=== PATIENT | female | born 1945 | race Caucasian/White ===

== ENCOUNTER → 2024-06-07 14:50 | Outpatient (REF) | payer MEDICARE, SELFPAY | LOC: HWRAD 14:50 | PROVIDERS: ATTENDING PHYSICIAN Physician Assistant Medical | DX: R63.4 Abnormal weight loss (principal); K52.9 Noninfective gastroenteritis and colitis, unspecified; R13.10 Dysphagia, unspecified; R59.9 Enlarged lymph nodes, unspecified; R22.1 Localized swelling, mass and lump, neck | CPT/HCPCS: 76536 ==

== ENCOUNTER → 2024-06-24 09:42 | Outpatient (REF) | payer MEDICARE, SELFPAY | LOC: RST 09:42 | PROVIDERS: ATTENDING PHYSICIAN Internal Medicine; FAMILY PHYSICIAN Physician Assistant Medical | DX: R13.10 Dysphagia, unspecified (principal) | CPT/HCPCS: 74230; 92611 ==

== ENCOUNTER → 2024-07-05 09:06 | Outpatient (REF) | payer MEDICARE, SELFPAY | LOC: RAD 09:06 | PROVIDERS: ATTENDING PHYSICIAN Internal Medicine; FAMILY PHYSICIAN Physician Assistant Medical | DX: R13.10 Dysphagia, unspecified (principal) | CPT/HCPCS: 74246 ==

== ENCOUNTER 2024-09-05 06:39 | Day surgery (SDC) | payer MEDICARE, SELFPAY | END 2024-09-05 13:21 | disposition home or self-care (01) | LOC: GI 06:39 | PROVIDERS: ATTENDING PHYSICIAN Internal Medicine | DX: Z12.11 Encounter for screening for malignant neoplasm of colon (principal); K57.30 Diverticulosis of large intestine without perforation or abscess without bleeding; K64.4 Residual hemorrhoidal skin tags; K64.8 Other hemorrhoids; K58.9 Irritable bowel syndrome, unspecified; R10.13 Epigastric pain; K44.9 Diaphragmatic hernia without obstruction or gangrene; K22.89 Other specified disease of esophagus; R93.3 Abnormal findings on diagnostic imaging of other parts of digestive tract; K31.89 Other diseases of stomach and duodenum; K22.4 Dyskinesia of esophagus; D12.2 Benign neoplasm of ascending colon; D12.3 Benign neoplasm of transverse colon; K63.5 Polyp of colon; Z98.0 Intestinal bypass and anastomosis status; Z86.0101 Personal history of adenomatous and serrated colon polyps | CPT/HCPCS: 45385; 45380; 43239; 88305; 88342 ==

== ENCOUNTER 2024-10-26 22:37 | Inpatient (IN) | payer MEDICARE, SELFPAY ==
--- NOTE | 2024-10-26 19:05 | EDRN ---
Addendum entered by Meeta Cruz RN 10/26/24 22:08:
Call placed to nila kaminski at [facility] also caring for the patient. family never arrived to hospital after patient's arrival or called to check on patient.
Original Note:
Patient arrived from home via EMS after being found on the ground by her daughter today at approximately 1830. Per EMS they 'peeled' the patient off of the carpet. Patient assumed to be down after a fall since , as that is when her daughter
left on her trip. Patient states that her daughters [id number], who was taking care of the patients grandchildren, was supposed to be checking in on her. Patient states she could hear them in the home as she lives in the in-law suite at her
daughters house. Patient reports that she remembers the fall and what she was doing before the fall but does not know exactly what day this fall happened. Patient arrives with pressure wounds to her face of multiple stages and to her chest. Patient
is unable to open right eye, appears extremely dehydrated, and is saturated head to toe in urine. Patient states that on a normal day, there are people checking on her, but she was not checked on for the time she spent on the floor.
[2024-10-26 19:07] VITALS: BP 123/71
[2024-10-26 19:10] VITALS: BP 123/71
[2024-10-26 19:29] LABS: Hematocrit 45.8 % (37.0-47.0); Hemoglobin 14.9 g/dL (12.0-16.0); Mean Corp Hgb Conc. 32.5 g/dL (33.0-37.0); Mean Corpuscular Volume 95.8 fL (81.0-99.0); Nucleated Red Blood Cells % 0 %; Platelet Count 268 10^3/uL (130-400); Red Cell Dist. Width 12.9 % (11.5-14.5)
[2024-10-26 19:55] LABS: ALT (SGPT) 174 U/L (0-35); AST (SGOT) 675 U/L (14-36); Albumin 4.7 g/dl (3.5-5.0); Alkaline Phosphatase 56 U/L (38-126); Blood Urea Nitrogen 85 mg/dl (7-17); Calcium 10.2 mg/dl (8.4-10.2); Carbon Dioxide 24 mmol/L (22-30); Chloride 109 mmol/L (98-107); Glucose 134 mg/dl (70-99); Potassium 5.1 mmol/L (3.5-5.1); Sodium 144 mmol/L (135-145); Total Protein 8.1 g/dl (6.3-8.2); eGFR 18.21
[2024-10-26 20:00] VITALS: BP 109/72
--- NOTE | 2024-10-26 20:08 | ED.GENMED ---
History of Present Illness
General
Chief Complaint: Fall
Source: patient and ambulance crew
Exam Limitations: none
Time Seen by Provider: 10/26/24 19:30
Nursing documentation reviewed up to this point in time: agreed with
History of Present Illness
History of Present Illness:
Note:
CHIEF COMPLAINT(S)
Generalized pain and dehydration following a fall.
HISTORY OF PRESENT ILLNESS
The patient is a 79-year-old female who was found by her daughter after having fallen, possibly several days ago. The exact timing of the fall is unclear, but it was significant enough that the patients daughter was concerned upon finding her. The
patient reports pain 'all over' and mentions feeling dehydrated, expressing extreme thirst and craving for a milkshake. The patients walker was found over her head, indicating a possible fall. Additionally, she discussed a history of bipolar
disorder for which she had been previously on lithium, leading to adverse reactions including tremors.
SOCIAL HISTORY
The patient has a history of service, having worked in the [employer], and has shared about her daughters professional achievements in research and development.
REVIEW OF SYSTEMS
- Musculoskeletal: Generalized pain.
- Neurological: Reports history of tremors associated with past lithium use.
- Psychiatric: History of bipolar disorder.
PHYSICAL EXAM
General: Alert, no acute distress.
Skin: Warm, dry. pressure ulcer right side of face
Head: Normocephalic, atraumatic.
Neck: Supple, trachea midline.
Eye, Ears, Nose, Mouth, and Throat: Oral mucosa moist.
Cardiovascular: Normal peripheral perfusion, No edema.
Respiratory: Respirations are non-labored.
Gastrointestinal: Abdomen nondistended.
Back: Normal range of motion, Normal alignment.
Musculoskeletal: Normal range of motion, normal strength.
Neurological: Alert and oriented to person, place, time, and situation, No focal neurological deficit observed.
Psychiatric: Cooperative, appropriate mood & affect.
PLAN
- Administer intravenous fluids to address dehydration.
- Perform imaging studies to assess for potential injuries from the fall, including a computed tomography scan of the head, evaluation of the neck, and additional x-rays.
- Admit to the hospital for observation and further evaluation overnight.
DIFFERENTIAL DIAGNOSIS
The differential diagnosis includes, in no particular order and is not limited to:
1. Dehydration
2. Musculoskeletal injury from fall
3. Electrolyte imbalance
4. Neurological injury from fall
5. Delirium due to potential underlying infection or metabolic causes
6. Osteoporosis-related fracture
7. Syncope or postural hypotension leading to fall
8. Acute renal failure secondary to dehydration
9. Recurrence of psychiatric condition
10. Adverse reaction to previous medications (e.g., lithium)
CARE-UPDATE
10/26/24 - 22:17
Patient has rhabdomyolysis leading to acute renal failure and a pressure ulcer on the right side of the face from a fall. No signs of cranial hemorrhage, cervical spine fracture, pneumothorax, rib fracture, or pelvic/hip fracture. IV fluids are
being administered. The patient is admitted under the care of a hospitalist. A report concerning the patient being left unattended for three days has been filed by nursing staff.
EKG
My independent EKG interpretation is:
- EKG poor quality due to tremor.
- Heart rate: 104 bpm.
- Decker: Normal.
- No signs of ischemia observed.
- Poor quality limits interpretation.
Disposition:
SUMMARY OF ENCOUNTER
The patient, a 79-year-old female, was brought to the emergency department after being discovered by her daughter following a fall that likely occurred several days prior. Upon evaluation, the patient was dehydrated and expressed generalized pain.
Imaging was performed to assess for injuries related to the fall. Intravenous fluids were administered due to dehydration, and she was admitted for further observation and management.
DISPOSITION
Admit.
ASSESSMENT
The patient is assessed to have acute renal failure due to rhabdomyolysis, which was exacerbated by the fall and a potential period of neglect. Additionally, a pressure ulcer on the right side of the face was noted likely due to prolonged immobility
following the fall.
PLAN
The patient is to be admitted under the care of a hospitalist for management of acute renal failure secondary to rhabdomyolysis and a pressure ulcer. Intravenous fluid administration will continue to address dehydration and potential renal recovery.
Monitoring and treatment for any possible complications such as infection or further renal injury will be ongoing. Evaluate for social support and ensure proper care and supervision post-discharge to prevent recurrence of neglect-related issues.
INDEPENDENT REVIEW OF LABS AND INTERPRETATION OF TESTS
- My independent review of EKG is that the quality was poor due to tremor, heart rate was 104 bpm, axis was normal, and no signs of ischemia were observed.
MEDICAL DECISION MAKING
-Complexity of Data Reviewed: Chronic conditions affecting care [bipolar disorder, previous adverse reaction to lithium, history of tremor]. Differential diagnosis includes dehydration, musculoskeletal injury from fall, electrolyte imbalance,
neurological injury from fall, delirium due to potential underlying infection or metabolic causes, osteoporosis-related fracture, syncope or postural hypotension leading to fall, acute renal failure secondary to dehydration, recurrence of
psychiatric condition, and adverse reaction to previous medications.
-Data:
- Category 1:
- My independent interpretation of EKG: Poor quality due to tremor, heart rate 104 bpm, normal axis, no ischemia.
- Category 3:
- Discussion of management with hospitalist for admission and further treatment of acute renal failure and pressure ulcer.
-Risk:
- Consideration of Admission/Observation: Escalation of care including admission was implemented given the complexity and risk of the patients presenting symptoms and current medical status, ensuring appropriate supervision and intervention in a
hospital setting.
DIAGNOSIS
- Acute renal failure (ICD-10: N17.9)
- Rhabdomyolysis (ICD-10: M62.82)
- Pressure ulcer of right side of face (ICD-10: L89.210)
- Fall, unspecified (ICD-10: W19.XXXA)
- Neglect (ICD-10: T74.90XA)
Phy Exam
Physical Exam
Physical Exam:
.
Course
Orders/Labs/Results
Orders:
Orders
10/26/24 19:12
Urinalysis Reflex To Culture Urgent
Date Specimen was Collected: 10/26/24
Time Specimen was Collected: 19:12
10/26/24 19:21
CPK [Creatine Phosphokinase] Urgent
Complete Blood Count/With Diff Urgent
Comprehensive Metabolic Panel Urgent
Lactic Acid Urgent
Blood Culture Urgent
ROSE Source: Blood/Venous
Specimen Description:
Date Specimen was Collected: 10/26/24
Time Specimen was Collected: 19:12
10/26/24 19:22
Electrocardiogram (*1) Urgent
Reason for Study: Hypertension, Benign
EKG- Treatment ONCE
10/26/24 20:04
CT Cervical Spine W/o Iv Contr Urgent
Comment:
Reason For Exam: fall
CT Head W/o Iv Contrast Urgent
Comment:
Reason For Exam: fall
CR Chest - 2 Views Urgent
Comment:
Reason For Exam: fall onto right side
Pelvis, 1 or 2 Views CR [CR Pelvis - 1 Or 2 Views ] Urgent
Comment:
Reason For Exam: fall
10/26/24 20:05
0.9% Sodium Chloride 1000 ml [Nss] 1,000 ml IV BOLUS
Abnormal Lab Results
10/26/24
19:21
WBC 18.2 H 10^3/uL
(4.8-10.8)
MCH 31.2 H pg
(27.0-31.0)
MCHC 32.5 L g/dL
(33.0-37.0)
MPV 10.8 H fL
(7.4-10.4)
Abs Immat Gran (auto) 0.1 H 10^3/uL
(0-0.05)
Absolute Neuts (auto) 15.9 H 10^3/uL
(1.4-6.5)
Absolute Lymphs (auto) 0.8 L 10^3/uL
(1.2-3.4)
Absolute Monos (auto) 1.4 H 10^3/uL
(0.1-0.6)
Neutrophils % 87.3 H %
(42.2-75.2)
Lymphocytes % 4.1 L %
(20.5-51.1)
Chloride 109 H mmol/L
(98-107)
BUN 85 H mg/dl
(7-17)
Creatinine 2.6 H mg/dL
(0.6-1.0)
Glucose 134 H mg/dl
(70-99)
Lactic Acid 2.3 H mmol/L
(0.7-2.0)
AST 675 H* U/L
(14-36)
ALT 174 H U/L
(0-35)
Creatine Kinase 03582 H U/L
(30-135)
10/26/24 19:21
10/26/24 19:21
Vital Signs
Initial and Last Documented VS:
Initial Vital Signs
Temp Pulse Resp BP Pulse Ox
98.2 F 104 16 123/71 96
10/26/24 19:07 10/26/24 19:07 10/26/24 19:07 10/26/24 19:07 10/26/24 19:07
Last Documented Vital Signs
Temp Pulse Resp BP Pulse Ox
98.2 F 93 18 123/71 96
10/26/24 19:07 10/26/24 19:45 10/26/24 19:45 10/26/24 19:10 10/26/24 20:08
*Pulse Oximetry
SaO2: 96
Oxygen Mode of Delivery: Room air
Patient hypoxic: no
*Critical Care Note
Total Time (30-74mins, 75-104mins- exclusive of procedures): Not Applicable
ED Attending Note
-
Portions of this chart may have been created with voice recognition software.� Occasional wrong word or��sound alike� substitutions may have occurred due to the inherent limitations of voice recognition software.
Discharge Plan
Departure
Patient Disposition: Admit
Date of Disposition: 10/26/24
Time of Disposition: 22:01
Admit to: Telemetry
Presentation/result/management discussed w/ accepting MD/DO: Hospitalist
Patient with high blood pressure during this ER visit?: Yes
Condition: Fair
Discharge Problem:
Acute renal failure due to rhabdomyolysis, Fall, Pressure ulcer
Referrals:
Marifer Devine PA-C [Family Provider, Family Practice]
Interventions
Interventions:
*Risk Screen - Suicide Last Done: 10/26/24 19:29
*General Assessment Last Done: 10/26/24 19:22
*Neglect/Abuse Screening Last Done: 10/26/24 21:43
*ED- Fall Risk Assessment Last Done: 10/26/24 19:22
*ED COVID-19 Vaccine History Last Done: 10/26/24 19:22
ED-Musculoskeletal Assessment Last Done: 10/26/24 19:42
ED- Neurological Assessment Last Done: 10/26/24 19:30
ED-Skin Assessment Last Done: 10/26/24 19:42
Discharge Date and Time
Print Language: KOSOVAN
[2024-10-26] MEDS: NSS 1000 IV (20:11)
[2024-10-26 21:00] VITALS: BP 108/70
[2024-10-26 22:11] VITALS: BP 116/72
[2024-10-26 22:21] VITALS: BMI 22.0
--- NOTE | 2024-10-26 22:29 | HPS.HSE ---
Family Physician
-
Family Physician: Marifer Devine
Chief Complaint
-
Found Down
History of Present Illness
Patient is a 79y F with PMH significant for bipolar disorder and tremor / tardive dyskinesia who presents to ED after being found down at home today by family. Patient states that she fell '[birth year] my [birth year]' which was [birth year]. She was last seen by
family (with whom she lives) on when they left to take patient's grandchild to college. Family returned home today to find patient down on the floor in the kitchen. Patient found to be incontinent of stool / urine. She had redness /
pressure wound on the R side of her face and was unable to get up unassisted.
911 was called and patient was taken to the ED for further evaluation.
Patient is unable to provide details of the fall. When asked, she repeatedly discusses how she was found by her daughter - but not how she ended up on the floor in the first place.
Patient currently complains of pain 'all over'.
She states that she takes no medications at present. Reports that she used to be on lithium but this was stopped by her Psychiatrist several weeks ago.
(She also indicates that she may have actually been discharged from that practice for repeated missed appointments?).
Medical History
Past Medical History
Past Medical History: Reports Other
Additional Past Medical History:
Bipolar Disorder
Tardive Dyskinesia / Essential Tremor
GERD
Endometriosis
Diverticular Disease
DDD
Past Surgical History: Reports Other
Additional Past Surgical History:
RENAE / BSO
Cholecystectomy
TKA
Lumbar Laminectomy
Partial Colectomy / Colostomy / Reversal
Social History
Tobacco: Non-smoker
Alcohol: Occasional
Drug: None
Living: With Family
Family History
Family History: Not pertinent
Allergies / Home Medications
Allergies reflects when Allergies were last updated in [employer].
Home Medications with original date entered in [facility]
Allergy/Medication List:
Patient reports no current medications. ? accurate.
If medication reconciliation has not been performed, why?: Medication List N/A
Review of Systems
-
History Source: Patient
A 12 point ROS was completed and negative except as noted: Yes
Constitutional: Reports Fatigue; Denies Fever
EENT: Reports Other (Dry mouth)
Respiratory: Denies Cough or Trouble Breathing
Cardiac: Denies Chest Pain or Palpitations
Abdomen/GI: Denies Abdominal Pain, Nausea, Vomiting or Diarrhea
Musculoskeletal: Reports Joint Pain and Muscle Pain
Neurological: Reports Headache and Other (Tremor (chronic)); Denies Dizzy
Physical Exam
Vital Signs
Vital Signs
Temp Pulse Resp BP Pulse Ox
98.2 F 105 13 116/72 99
10/26/24 19:07 10/26/24 22:15 10/26/24 22:15 10/26/24 22:11 10/26/24 22:11
Physical Exam
General: Other (79y F in mild distress due to pain.)
HEENT: Other (Edema of the R face including lips / eyelids. Ecchymotic / early necrotic lesion over the R maxilla. Mild surrounding erythema / superfical abrasion and excoriation.)
Respiratory: Clear; No Wheezes, Rales or Rhonchi
Cardiac: S1/S2 and Regular Rhythm; No Murmur
GI: Soft, Non Tender, Non Distended and Normal Bowel Sounds
Musculoskeletal: No Clubbing, No Cyanosis and Other (Trace dependent edema.)
Skin: Other (Erythema posterior thighs / buttocks with superficial excoriation.)
Neuro: Awake and Alert
Laboratory Results
-
10/26/24 19:21
10/26/24 19:21
Laboratory Results
Lactic Acid 2.3 mmol/L (0.7-2.0) H 10/26/24 19:21
Total Bilirubin 0.7 mg/dl (0.2-1.3) 10/26/24 19:21
AST 675 U/L (14-36) H* 10/26/24 19:21
ALT 174 U/L (0-35) H 10/26/24 19:21
Alkaline Phosphatase 56 U/L (38-126) 10/26/24 19:21
Impression/Plan
-
A/P: Patient is a 79y F with PMH significant for bipolar disorder and tremor who presents to ED after being found down at home by family this evening.
Found Down
Rhabdomyolysis
JOHN
Pressure Wounds / Skin Breakdown
- Admit for further evaluation and treatment.
- Unclear timing of fall - patient states fall was yesterday; however, exam / appearance seems c/w longer period 'down'.
- Last seen well on .
- SCr = 2.6 with no prior value to compare. Outpatient record includes diagnosis of 'CKD III', but suspect JOHN given rhabdo, etc.
- IVFs with bicarbonate for now. Follow for adequate urine output, improvement of renal function and decrease in CPK levels.
- Nephrology evaluation for additional recommendations.
- Check lithium level (though patient notes that she has been off of this for at least several weeks).
- Wound care for local care of pressure wounds.
Fall at Home
- Unclear mechanism of fall, +/- LOC, etc.
- Monitor on telemetry for any evidence of arrhythmia.
- PT / OT evaluations.
- Imaging studies in the ED do not indicate any acute bony trauma, fracture, etc.
Leukocytosis
- Likely secondary to volume contraction, stress response, etc.
- Afebrile and no focal symptoms to suggest infection.
- Follow-up UA when available.
- Observe off of abx for now.
Bipolar Disorder
Benign Essential Tremor
- Patient reports that she was on lithium for some time - but it was 'stopped' several weeks ago.
- She also states that her Psychiatrist told her 'not to come back' because she had missed multiple appointments.
- Check lithium level as noted above.
- Monitor for any acute mood changes, delirium, etc.
DVT Prophylaxis: SCDs
Code Status: Full
[2024-10-26 23:43] VITALS: BMI 21.3
[2024-10-26 23:45] LABS: Lithium < 0.2 mmol/L (0.6-1.2)
[2024-10-26 23:46] VITALS: BP 104/68
[2024-10-27] VITALS (14 sets, daily range): BP systolic 98–118; BP diastolic 61–102; PULSE 82–115; O2SAT 96–97; BMI 21.3
[2024-10-27] MEDS: SODIUM BICARBONATE 1150 MEQ IV ×2 (01:25→08:34)
[2024-10-27] MEDS: NSS 1000 IV (01:26)
[2024-10-27] MEDS: TYLENOL 650 MG PO ×2 (02:25→22:02)
--- NOTE | 2024-10-27 03:51 | PTCARENOTE ---
received pt from ED at 23:20. pt aaox3, able to make needs known. C/o pain 'all over'. PO tylenol given. Clear liquid diet. 5 small cups of apple juice given per patient request(1200ml) followed by two large cups of water (960ml). IVF hung. Pt with
large liquid BM. Bed linens changed, CHG bath done. Pt resting comfortably in bed at this time. VSS. Care ongoing.
[2024-10-27 06:30] LABS: Hematocrit 37.6 % (37.0-47.0); Hemoglobin 12.8 g/dL (12.0-16.0); Mean Corp Hgb Conc. 34.0 g/dL (33.0-37.0); Mean Corpuscular Volume 94.9 fL (81.0-99.0); Platelet Count 199 10^3/uL (130-400); Red Cell Dist. Width 13.0 % (11.5-14.5)
[2024-10-27 06:46] LABS: ALT (SGPT) 138 U/L (0-35); AST (SGOT) 442 U/L (14-36); Albumin 3.6 g/dl (3.5-5.0); Alkaline Phosphatase 46 U/L (38-126); Blood Urea Nitrogen 87 mg/dl (7-17); Calcium 8.9 mg/dl (8.4-10.2); Carbon Dioxide 21 mmol/L (22-30); Chloride 111 mmol/L (98-107); Estimated Creatinine Clearance 20 ml/min; Glucose 137 mg/dl (70-99); Magnesium 2.6 mg/dl (1.6-2.3); Potassium 4.3 mmol/L (3.5-5.1); Sodium 141 mmol/L (135-145); Total Protein 6.4 g/dl (6.3-8.2); eGFR 23.53
--- NOTE | 2024-10-27 07:19 | W.PN.HOSP.TC ---
Today's Communication/Plan
-
Continue IV fluids
Urinalysis
Tegretol level
Advance diet
PT/OT
Please update home medication list
Assessment / Plan
Assessment / Plan
Gen-awake but not fully alert, no acute distress.
HEENT-NC, AT, anicteric, clear oral mm
Neck-supple
CV-reg, no M, +S1/S2
Lungs-clear B/L
Abd-soft, NT, ND
Ext-no edema
Musculoskeletal-no cyanosis, clubbing
Skin-warm and dry
Neuro-grossly non-focal, bilateral arm tremors
Psych-calm, cooperative
JOHN -likely due to volume depletion, poor oral intake, limited access to fluids prior to admission. Continue hydration. Creatinine coming down. Check urinalysis. Nephrology consulted.
Acute traumatic rhabdomyolysis -due to fall, stationary position with limited mobility. Continue alkalinize IV fluids, CPK trending down. Check urinalysis.
TSH is normal.
Bipolar disorder -previously on lithium but no longer taking. Will need to update home medication list. It appears that recently she has been on escitalopram, nortriptyline, Tegretol.
Check Tegretol level.
Tardive dyskinesia/nonessential tremor -I saw a note dated 09/05/2024 (H&P from Dr. Pinto) mentioning possible lithium related tardive dyskinesia. Although lithium is a very unlikely cause of tardive dyskinesia there have been rare cases of it on
my literature review.
Chronic multifactorial dysphagia - been seen by Dr. Pinto of gastroenterology. Last note dated 09/05/2024. Underwent video swallowing study by speech therapy 06/24/2024, showing cervical osteophytes causing impingement of the posterior esophagus
without obstruction. Evidence of likely esophageal motility disorder, small hiatal hernia without reflux. Diet recommendation was regular diet with thin liquids.
EGD completed 09/05/24 showed abnormal esophageal motility, small hiatal hernia, nodular esophageal mucosa, atrophic erythematous and granular mucosa in the stomach, normal duodenum. Path report from biopsies was negative for H. pylori or intestinal
metaplasia.
Colonoscopy completed 09/05/24 showed fair preparation, perianal skin tags, normal ileum, 2 cecal polyps, 4 ascending colon polyps, 2 hepatic flexure polyps, 3 transverse colon polyps, diverticulosis in the descending colon, patent [id number]
colocolonic anastomosis with healthy-appearing mucosa, mild colonic spasm, stool in the entire examined colon, nonbleeding internal hemorrhoids. Path report showed polyps are consistent with hyperplastic polyps and tubular adenoma in the ascending
colon, tubular adenoma Paddock flexure, tubular adenomas at the transverse colon, unremarkable left colon biopsy, unremarkable random right colon biopsy.
Currently on clear liquid diet, advance as tolerated to regular diet.
Urinary incontinence
Hyperlipidemia
Mild cognitive impairment
GERD
Endometriosis
Diverticulosis
Colon polyps -adenomatous and serrated.
History of ostomy due to diverticulitis, reversed
Full code
Anticipated Discharge: > 48 hours
Subjective/Interval History
-
Date of Service: October 27, 2024
Patient seen and examined. Complaining of thirst.
Objective Data
-
Labs:
Laboratory Results
10/26/24 10/27/24
19:21 06:07
WBC 18.2 H 15.0 H
Hgb 14.9 12.8
Hct 45.8 37.6
Plt Count 268 199 D
Sodium 144 141
Potassium 5.1 4.3
Chloride 109 H 111 H
Carbon Dioxide 24 21 L
BUN 85 H 87 H
Creatinine 2.6 H 2.1 H
Glucose 134 H 137 H
Calcium 10.2 8.9
Total Bilirubin 0.7 0.6
AST 675 H* 442 H
ALT 174 H 138 H
Alkaline Phosphatase 56 46
Vital Signs:
Vital Signs
Temp Pulse Resp BP Pulse Ox
99.1 F 85 18 104/62 97
10/26/24 23:43 10/27/24 04:00 10/27/24 04:00 10/27/24 04:00 10/27/24 04:00
I&O
10/26/24 10/27/24 10/28/24
06:59 06:59 06:59
Intake Total 3160 / 3160
Balance 3160 / 3160
Review of Systems
-
History Source: Patient
All other systems: Reviewed and negative
--- NOTE | 2024-10-27 10:58 | PTCARENOTE ---
pt to ultrasound w/ transport via stretcher. Pt updated on plan of care.
--- NOTE | 2024-10-27 11:27 | W.CON.NEPH ---
Consultation
-
Date/Time Consultation Requested: 10/27/23 3664
Date/Time Consultation Performed: 10/27/24 1130
Requesting Provider: Chi Shrestha
Performing Provider: Jo Ann Avery
Reason for Consultation: JOHN, RHabdo
Medical History
-
Chief Complaint: Found down
History of Present Illness:
79y F with PMH significant for bipolar disorder and tremor / tardive dyskinesia not on meds who presents to ED after being found down at home on 10/26 by family. Patient states that she fell on floor while reaching food in the fridge 'on my
birthday' which was 10/25, she uses walker for ambulation?. She reports unable to get up from her fall and remained on floor till family(whom she lives with) was able to help her next day 10/26. She was last seen by family on when they left to
take patient's grandchild to college. Family returned home yesterday to find patient down on the floor in the kitchen. Patient found to be incontinent of stool / urine. She had redness / pressure wound on the R side of her face and was unable to
get up unassisted. 911 was called and patient was taken to the ED for further evaluation.
Pt is forgetful and unable to provide detailed history. Reports no CP or sob or abd pain. Reports diarrhea and U incontinence.
No fever here and BP stable. cr noted 2.6, BUN 85 CK of 15k on admit and today with IVF cr down to 2.1, BUN 87, CK 10k.
Past Medical History
Bipolar Disorder
Tardive Dyskinesia / Essential Tremor
GERD
Endometriosis
Diverticular Disease
DDD
Past Surgical History: Other (RENAE / BSO Cholecystectomy TKA Lumbar Laminectomy Partial Colectomy / Colostomy / Reversal)
Social History
Tobacco: Non-Smoker
Alcohol: Occasional
Living: With Family
Family History
Family History: Unable to Obtain
Allergies / Home Medications
Allergy/AdvReac Type Severity Reaction Status Date / Time
No Known Allergies Allergy Verified 10/26/24 19:49
�Medication �Instructions �Recorded �Confirmed �Type
Unobtainable 10/26/24 10/26/24 History
Review of Systems
-
Unable to obtain full review of systems at this time due to: Acuity
All other systems: Negative unless noted
Physical Exam
Vital Signs
Vital Signs
Temp Pulse Resp BP Pulse Ox
98.2 F 83 17 108/64 97
10/27/24 07:16 10/27/24 10:00 10/27/24 10:00 10/27/24 10:00 10/27/24 10:00
Lab Results
WBC 15.0 10^3/uL (4.8-10.8) H 10/27/24 06:07
RBC 3.96 10^6/uL (4.20-5.40) L 10/27/24 06:07
Hgb 12.8 g/dL (12.0-16.0) 10/27/24 06:07
Hct 37.6 % (37.0-47.0) 10/27/24 06:07
Plt Count 199 10^3/uL (130-400) D 10/27/24 06:07
Sodium 141 mmol/L (135-145) 10/27/24 06:07
Potassium 4.3 mmol/L (3.5-5.1) 10/27/24 06:07
Chloride 111 mmol/L (98-107) H 10/27/24 06:07
Carbon Dioxide 21 mmol/L (22-30) L 10/27/24 06:07
BUN 87 mg/dl (7-17) H 10/27/24 06:07
Creatinine 2.1 mg/dL (0.6-1.0) H 10/27/24 06:07
eGFR 23.53 10/27/24 06:07
Glucose 137 mg/dl (70-99) H 10/27/24 06:07
Calcium 8.9 mg/dl (8.4-10.2) 10/27/24 06:07
Phosphorus 4.7 mg/dl (2.5-4.5) H 10/27/24 06:07
Albumin 3.6 g/dl (3.5-5.0) 10/27/24 06:07
Physical Exam
General: Awake, Alert, Oriented, No Distress and Nontoxic
HEENT: EOMI, Anicteric, Facial Symmetry and Neck Supple
Respiratory: Clear, Normal Excursion and Nonlabored Respirations
Cardiac: S1/S2 and Regular Rate/Rhythm
Abdomen: Soft, Nontender and Nondistended
Musculoskeletal: No Cyanosis and No Edema
Skin: Other (pressure wound on right face)
Neuro: Nonfocal/Grossly Intact
Psych: Appropriate
Data Reviewed
-
Labs: Labs Reviewed by me, Discussed with Nurse and Discussed with Patient
Assessment/Plan
-
IMP:
Found Down
Rhabdomyolysis
JOHN
Pressure Wounds / Skin Breakdown
Fall at Home
Leukocytosis
Bipolar Disorder
Benign Essential Tremor
Plan:
A/w found down at home
JOHN-likely prerenal base don history
check UA, Fena, monitor UOP-has incontinence
also check renal US
Rhabdo is improving -cont aggressive IVF
mild met acidosis on bicarb IVF
repeat labs later today and adjust IVF accordingly
BP are stable
cont supportive care
d/w nursing and pt
[2024-10-27 19:09] LABS: Blood Urea Nitrogen 81 mg/dl (7-17); Calcium 8.7 mg/dl (8.4-10.2); Carbon Dioxide 28 mmol/L (22-30); Chloride 103 mmol/L (98-107); Estimated Creatinine Clearance 27 ml/min; Glucose 139 mg/dl (70-99); Potassium 4.2 mmol/L (3.5-5.1); Sodium 136 mmol/L (135-145); eGFR 32.60
[2024-10-27] MEDS: SENOKOT 17.2 MG PO (22:03)
[2024-10-27 22:27] LABS: Urine Character Clear (Clear)
[2024-10-27 22:33] LABS: Urine White Cell 0-2 /HPF (0-5)
[2024-10-28] VITALS (10 sets, daily range): BP systolic 98–117; BP diastolic 50–67; PULSE 78; O2SAT 100; BMI 22.6
[2024-10-28] MEDS: SODIUM BICARBONATE 1150 MEQ IV (00:11)
--- NOTE | 2024-10-28 02:30 | PTCARENOTE ---
Patient AAOx3, forgetful at times, repeating sentences. Pt is able to make needs known. c/o pain to right side of the face, ice pack applied. PRN Tylenol administered, see MAR. Pt c/o stiffness and sore muscles. Pt needs assistance with ADLs. IVF
with bicarb cont. Hygiene done. Pt utilizing the call santoyo appropriately, call santoyo within reach.
[2024-10-28 04:40] LABS: Hematocrit 34.2 % (37.0-47.0); Hemoglobin 11.4 g/dL (12.0-16.0); Mean Corp Hgb Conc. 33.3 g/dL (33.0-37.0); Mean Corpuscular Volume 94.2 fL (81.0-99.0); Nucleated Red Blood Cells % 0 %; Platelet Count 155 10^3/uL (130-400); Red Cell Dist. Width 12.6 % (11.5-14.5)
[2024-10-28 04:47] LABS: ALT (SGPT) 106 U/L (0-35); AST (SGOT) 254 U/L (14-36); Albumin 3.3 g/dl (3.5-5.0); Alkaline Phosphatase 44 U/L (38-126); Blood Urea Nitrogen 71 mg/dl (7-17); Calcium 8.6 mg/dl (8.4-10.2); Carbon Dioxide 33 mmol/L (22-30); Chloride 102 mmol/L (98-107); Estimated Creatinine Clearance 28 ml/min; Glucose 113 mg/dl (70-99); Potassium 3.8 mmol/L (3.5-5.1); Sodium 138 mmol/L (135-145); Total Protein 5.8 g/dl (6.3-8.2); eGFR 35.23
--- NOTE | 2024-10-28 10:28 | WOUNDNOTE ---
R SIDE OF FACE
--- NOTE | 2024-10-28 10:40 | W.PN.NEPH.PH ---
Today's Communication / Plan
-
NSS
Assessment/Plan
-
IMP:
Found Down
Rhabdomyolysis
JOHN
Pressure Wounds / Skin Breakdown
Fall at Home
Leukocytosis
Bipolar Disorder
Benign Essential Tremor
Plan:
follow BMP
follow CPK
change to NSS given alkalosis
-
-
Date of Service: October 28, 2024
CC / HPI / ROS
-
Chief Complaint:
JOHN
History of Present Illness:
JOHN/Cr down to 1.5
BP stable but low
CPK decreasing
Review of Systems:
no CP/SOB
Labs
-
Labs:
WBC 8.7 10^3/uL (4.8-10.8) 10/28/24 04:11
RBC 3.63 10^6/uL (4.20-5.40) L 10/28/24 04:11
Hgb 11.4 g/dL (12.0-16.0) L 10/28/24 04:11
Hct 34.2 % (37.0-47.0) L 10/28/24 04:11
Plt Count 155 10^3/uL (130-400) D 10/28/24 04:11
Sodium 138 mmol/L (135-145) 10/28/24 04:11
Potassium 3.8 mmol/L (3.5-5.1) 10/28/24 04:11
Chloride 102 mmol/L (98-107) 10/28/24 04:11
Carbon Dioxide 33 mmol/L (22-30) H 10/28/24 04:11
BUN 71 mg/dl (7-17) H 10/28/24 04:11
Creatinine 1.5 mg/dL (0.6-1.0) H 10/28/24 04:11
eGFR 35.23 10/28/24 04:11
Glucose 113 mg/dl (70-99) H 10/28/24 04:11
Calcium 8.6 mg/dl (8.4-10.2) 10/28/24 04:11
Phosphorus 4.7 mg/dl (2.5-4.5) H 10/27/24 06:07
Albumin 3.3 g/dl (3.5-5.0) L 10/28/24 04:11
Physical Exam
-
Vital Signs:
Vital Signs
Temp Pulse Resp BP Pulse Ox
98.1 F 100 19 98/63 96
10/28/24 07:05 10/28/24 10:00 10/28/24 10:00 10/28/24 09:23 10/28/24 10:00
Cardiovascular:: Regular rate and rhythm
Respiratory:: Bilateral: Coarse
Lung Excursion:: Normal
Abdomen:: Nontender and Soft
Bowel Sounds:: Normal
Extremity Edema:: None: Bilateral:
--- NOTE | 2024-10-28 10:52 | WOUNDNOTE ---
[facility] RN note: Patient admitted with acute renal failure, s/p fall rhabdomyolysis.
See H&P for complete history.
PMH: Patient is a 79y F with PMH significant for bipolar disorder and tremor / tardive dyskinesia who presents to ED after being found down at home today by family. Patient states that she fell 'on my birthday' which was 10/[birth year].
Wound Location and type/assessment: Patient admitted with: R cheek with brown intact dry eschar s/p fall and on floor for a few days. Thinner abrasions on R lip and chin. R cheek rhabdomyolysis stable at the moment, has some evolving blistering on
edges. R hip, knee and leg with faint pink resolving mir. Patient said she dragged herself across the carpet. Patient sitting in chair, Sacrum appears intact, assessed under foam. Heels are blanchable red.
Appetite: Good.
Pressure redistribution devices in place: Air mattress, pillow under calves.
Plan: Will order mineral oil to apply to R cheek, lip and chin bid. Suspect scabs will slough off eventually. Will need to monitor the R cheek for any changes, nursing can notify wound care to follow up as needed.
Will confirm orders with hospitalist and updated nurse.
Updated care plan and will follow as needed.
Note to case management of equipment requested for discharge: none
Recommend follow up at wound care center if R cheek not improving, upon discharge.
--- NOTE | 2024-10-28 11:53 | CM ---
Initial assessment completed with patient who lives with her daughter and S-I-L in a 2 story home plus basement with a 1st floor set-up for patient, 3 steps to enter. [employer]IL [employer]ERY [employer]PER[employer] patient was independent in ambulation with a SPC and a RW for longer
distances. No in-home services. Does have a HC-POA. Was in the [employer] ? [employer] benefits. No psychiatric hospitalizations within the past 2 years. PA is Marifer Devine, affiliated practice unknown. Pharmacy is [facility] in . Discharge POC: TBD.
Therapy recommendation for Acute vs SNF.
[2024-10-28] MEDS: NSS 1000 IV (11:58)
[2024-10-28] MEDS: TYLENOL 650 MG PO ×2 (12:04→21:31)
--- NOTE | 2024-10-28 13:23 | W.PN.HOSP.TC ---
Today's Communication/Plan
-
Continue with rehab
IV fluids continue
Trend creatinine
Advance diet
Assessment / Plan
Assessment / Plan
Gen-awake but not fully alert, no acute distress.
HEENT-NC, AT, anicteric, clear oral mm
Neck-supple
CV-reg, no M, +S1/S2
Lungs-clear B/L
Abd-soft, NT, ND
Ext-no edema
Musculoskeletal-no cyanosis, clubbing
Skin-warm and dry
Neuro-grossly non-focal, bilateral arm tremors
Psych-calm, cooperative
JOHN -likely due to volume depletion, poor oral intake, limited access to fluids prior to admission. Continue hydration. Creatinine coming down to 1.5. IV fluid transition to normal saline. Nephrology following.
Acute traumatic rhabdomyolysis -due to fall, stationary position with limited mobility. Continue alkalinize IV fluids, CPK trending down 6280.
TSH is normal.
Bipolar disorder -continue with Tegretol, Lexapro and nortriptyline.
Tardive dyskinesia/nonessential tremor -monitor for now.
Chronic multifactorial dysphagia - been seen by Dr. Pinto of gastroenterology. Last note dated 09/05/2024. Underwent video swallowing study by speech therapy 06/24/2024, showing cervical osteophytes causing impingement of the posterior esophagus
without obstruction. Evidence of likely esophageal motility disorder, small hiatal hernia without reflux. Diet recommendation was regular diet with thin liquids.
EGD completed 09/05/24 showed abnormal esophageal motility, small hiatal hernia, nodular esophageal mucosa, atrophic erythematous and granular mucosa in the stomach, normal duodenum. Path report from biopsies was negative for H. pylori or intestinal
metaplasia.
Colonoscopy completed 09/05/24 showed fair preparation, perianal skin tags, normal ileum, 2 cecal polyps, 4 ascending colon polyps, 2 hepatic flexure polyps, 3 transverse colon polyps, diverticulosis in the descending colon, patent [id number]
colocolonic anastomosis with healthy-appearing mucosa, mild colonic spasm, stool in the entire examined colon, nonbleeding internal hemorrhoids. Path report showed polyps are consistent with hyperplastic polyps and tubular adenoma in the ascending
colon, tubular adenoma Paddock flexure, tubular adenomas at the transverse colon, unremarkable left colon biopsy, unremarkable random right colon biopsy.
Currently on clear liquid diet, advance as tolerated to regular diet.
Urinary incontinence
Mild cognitive impairment
GERD
Endometriosis
Diverticulosis
Colon polyps -adenomatous and serrated.
History of ostomy due to diverticulitis, reversed
Full code
PT/OT SNF versus acute rehab
Anticipated Discharge: > 48 hours
Subjective/Interval History
-
Date of Service: October 28, 2024
States appetite has improved
Had bowel movement earlier today
Objective Data
-
Labs:
Laboratory Results
10/28/24
04:11
WBC 8.7
Hgb 11.4 L
Hct 34.2 L
Plt Count 155 D
Sodium 138
Potassium 3.8
Chloride 102
Carbon Dioxide 33 H
BUN 71 H
Creatinine 1.5 H
Glucose 113 H
Calcium 8.6
Total Bilirubin 0.6
AST 254 H
ALT 106 H
Alkaline Phosphatase 44
Vital Signs:
Vital Signs
Temp Pulse Resp BP Pulse Ox
98.2 F 100 19 98/63 96
10/28/24 11:05 10/28/24 10:00 10/28/24 10:00 10/28/24 09:23 10/28/24 10:00
I&O
10/27/24 10/28/24 10/29/24
06:59 06:59 06:59
Intake Total 3160 / 3160 2100 / 2100
Output Total 1300 / 1300
Balance 3160 / 3160 800 / 800
Data Reviewed
-
Total Time Spent with Patient (in minutes): 55
--- NOTE | 2024-10-28 15:44 | PTCARENOTE ---
Caring for pt throughout the day. Aox3, but forgetful, anxious and confused at times. NSR on tele monitor. Grossly incontinent of bowel/bladder. Nicole care completed. OOB to chair with PT. Bed/chair alarms maintained for safety. Call santoyo within
reach.
[2024-10-28] MEDS: SENOKOT PO (21:27)
[2024-10-28] MEDS: HYDROPHOR 1 APPLIC TOPICAL (21:31)
[2024-10-28] MEDS: PAMELOR 25 MG PO (21:31)
[2024-10-28] MEDS: TEGRETOL XR (EXTENDED RELEASE) 400 MG PO (21:31)
[2024-10-29] VITALS (12 sets, daily range): BP systolic 104–119; BP diastolic 54–77; BMI 22.4
--- NOTE | 2024-10-29 00:04 | PTCARENOTE ---
Patient AAOx3, forgetful, and anxious at times. NSR on the monitor. Pt having loose/liquid stool, stool sample collected and sent. Full linen change, hygiene and katelynn care done. Moisture barrier cream applied to buttocks and perineum. Mineral oil
applied to R side of face. PRN Tylenol administered, pt experiencing aching 'all over'. VSS. Assessment and care as charted. IVF cont. Pt able to make needs known. Call santoyo within reach.
[2024-10-29] MEDS: NSS 1000 IV ×2 (00:59→14:37)
[2024-10-29] MEDS: TEGRETOL XR (EXTENDED RELEASE) 200 MG PO (06:10)
[2024-10-29 06:14] LABS: ALT (SGPT) 91 U/L (0-35); AST (SGOT) 172 U/L (14-36); Albumin 3.1 g/dl (3.5-5.0); Alkaline Phosphatase 47 U/L (38-126); Blood Urea Nitrogen 43 mg/dl (7-17); Calcium 8.6 mg/dl (8.4-10.2); Carbon Dioxide 33 mmol/L (22-30); Chloride 108 mmol/L (98-107); Estimated Creatinine Clearance 43 ml/min; Glucose 97 mg/dl (70-99); Potassium 3.8 mmol/L (3.5-5.1); Sodium 141 mmol/L (135-145); Total Protein 5.6 g/dl (6.3-8.2); eGFR 57.31
[2024-10-29] MEDS: TYLENOL 650 MG PO ×2 (06:14→21:12)
[2024-10-29] MEDS: LEXAPRO 15 MG PO (08:49)
[2024-10-29] MEDS: HYDROPHOR 1 APPLIC TOPICAL ×2 (08:49→19:57)
--- NOTE | 2024-10-29 09:39 | W.PN.NEPH.PH ---
Today's Communication / Plan
-
IVF
Assessment/Plan
-
IMP:
Found Down
Rhabdomyolysis
JOHN
Pressure Wounds / Skin Breakdown
Fall at Home
Leukocytosis
Bipolar Disorder
Benign Essential Tremor
Plan:
follow BMP
continue IVF for now
-
-
Date of Service: October 29, 2024
CC / HPI / ROS
-
Chief Complaint:
JOHN
History of Present Illness:
JOHN/Cr down to 1.0
BP stable but low
CPK decreasing ~3000
Review of Systems:
no CP/SOB
eating well
Labs
-
Labs:
WBC 8.7 10^3/uL (4.8-10.8) 10/28/24 04:11
RBC 3.63 10^6/uL (4.20-5.40) L 10/28/24 04:11
Hgb 11.4 g/dL (12.0-16.0) L 10/28/24 04:11
Hct 34.2 % (37.0-47.0) L 10/28/24 04:11
Plt Count 155 10^3/uL (130-400) D 10/28/24 04:11
Sodium 141 mmol/L (135-145) 10/29/24 05:32
Potassium 3.8 mmol/L (3.5-5.1) 10/29/24 05:32
Chloride 108 mmol/L (98-107) H 10/29/24 05:32
Carbon Dioxide 33 mmol/L (22-30) H 10/29/24 05:32
BUN 43 mg/dl (7-17) H 10/29/24 05:32
Creatinine 1.0 mg/dL (0.6-1.0) 10/29/24 05:32
eGFR 57.31 10/29/24 05:32
Glucose 97 mg/dl (70-99) 10/29/24 05:32
Calcium 8.6 mg/dl (8.4-10.2) 10/29/24 05:32
Phosphorus 4.7 mg/dl (2.5-4.5) H 10/27/24 06:07
Albumin 3.1 g/dl (3.5-5.0) L 10/29/24 05:32
Physical Exam
-
Vital Signs:
Vital Signs
Temp Pulse Resp BP Pulse Ox
98.0 F 73 16 113/56 96
10/29/24 07:05 10/29/24 06:00 10/29/24 06:00 10/29/24 06:00 10/29/24 02:00
Cardiovascular:: Regular rate and rhythm
Respiratory:: Bilateral: CTA
Lung Excursion:: Normal
Abdomen:: Nontender and Soft
Bowel Sounds:: Normal
Extremity Edema:: None: Bilateral:
--- NOTE | 2024-10-29 12:50 | PTCARENOTE ---
Caring for pt throughout the day. Aox3, but forgetful and confused at times. NSR on tele monitor. Incontinent of bowel/bladder. Nicole care completed. Stool cultures pending. Bed alarm maintained for safety. Call santoyo within reach.
--- NOTE | 2024-10-29 13:06 | W.PN.HOSP.TC ---
Today's Communication/Plan
-
Cont with IVF
Monitor increase p.o. intake
Ongoing disposition acute versus SNF
Assessment / Plan
Assessment / Plan
Gen-awake, in better spirits
HEENT-NC, AT, anicteric, clear oral mm, facial bruising noted
Neck-supple
CV-reg, no M, +S1/S2
Lungs-clear B/L
Abd-soft, NT, ND
Ext-no edema
Musculoskeletal-no cyanosis, clubbing
Skin-warm and dry
Neuro-grossly non-focal, bilateral arm tremors
Psych-calm, cooperative
JOHN -likely due to volume depletion, poor oral intake, limited access to fluids prior to admission. Continue hydration. Creatinine came down to 1. IV fluid transition to normal saline. Nephrology following.
Acute traumatic rhabdomyolysis -due to fall, stationary position with limited mobility. Continue alkalinize IV fluids, CPK trending down 3926.
TSH is normal.
Bipolar disorder -continue with Tegretol, Lexapro and nortriptyline.
Tardive dyskinesia/nonessential tremor -monitor for now.
Chronic multifactorial dysphagia - been seen by Dr. Pinto of gastroenterology. Last note dated 09/05/2024. Underwent video swallowing study by speech therapy 06/24/2024, showing cervical osteophytes causing impingement of the posterior esophagus
without obstruction. Evidence of likely esophageal motility disorder, small hiatal hernia without reflux. Diet recommendation was regular diet with thin liquids.
EGD completed 09/05/24 showed abnormal esophageal motility, small hiatal hernia, nodular esophageal mucosa, atrophic erythematous and granular mucosa in the stomach, normal duodenum. Path report from biopsies was negative for H. pylori or intestinal
metaplasia.
Colonoscopy completed 09/05/24 showed fair preparation, perianal skin tags, normal ileum, 2 cecal polyps, 4 ascending colon polyps, 2 hepatic flexure polyps, 3 transverse colon polyps, diverticulosis in the descending colon, patent [id number]
colocolonic anastomosis with healthy-appearing mucosa, mild colonic spasm, stool in the entire examined colon, nonbleeding internal hemorrhoids. Path report showed polyps are consistent with hyperplastic polyps and tubular adenoma in the ascending
colon, tubular adenoma Paddock flexure, tubular adenomas at the transverse colon, unremarkable left colon biopsy, unremarkable random right colon biopsy.
Currently on clear liquid diet, advance as tolerated to regular diet.
Urinary incontinence
Mild cognitive impairment
GERD
Endometriosis
Diverticulosis
Colon polyps -adenomatous and serrated.
History of ostomy due to diverticulitis, reversed
Full code
PT/OT SNF versus acute rehab
Anticipated Discharge: > 48 hours
Subjective/Interval History
-
Date of Service: October 29, 2024
Patient states appetite is improving tolerating diet
Objective Data
-
Labs:
Laboratory Results
10/29/24 10/29/24
04:22 05:32
Sodium Cancelled 141
Potassium Cancelled 3.8
Chloride Cancelled 108 H
Carbon Dioxide Cancelled 33 H
BUN Cancelled 43 H
Creatinine Cancelled 1.0
Glucose Cancelled 97
Calcium Cancelled 8.6
Total Bilirubin Cancelled 0.5
AST Cancelled 172 H
ALT Cancelled 91 H
Alkaline Phosphatase Cancelled 47
Vital Signs:
Vital Signs
Temp Pulse Resp BP Pulse Ox
97.9 F 78 16 105/54 95
10/29/24 11:05 10/29/24 10:00 10/29/24 10:00 10/29/24 10:00 10/29/24 08:00
I&O
10/28/24 10/29/24 10/30/24
06:59 06:59 06:59
Intake Total 2100 / 2100 480 / 480
Output Total 1300 / 1300
Balance 800 / 800 479 / 479
--- NOTE | 2024-10-29 15:34 | CM ---
Following up on patient. RN stated patient is transferring to the floors. OSCAR Soto saw that PT recommended Acute vs Skilled. RN stated patient is confused and it was a difficult session for PT/ OT yesterday so will discuss SNF with the daughter
Acacia: #[phone]
OSCAR Soto spoke to daughter Acacia who has a concern for her going home all together, but we discussed that the hope therapy will assist getting her back close to baseline as possible. Dtr [facility], [facility], and [facility]
Referrals made to all.
PLAN: SNF placement when ready.
[2024-10-29] MEDS: LOVENOX 40 MG SC (18:24)
[2024-10-29] MEDS: PAMELOR 25 MG PO (21:11)
[2024-10-29] MEDS: SENOKOT 17.2 MG PO (21:12)
[2024-10-29] MEDS: TEGRETOL XR (EXTENDED RELEASE) 400 MG PO (21:12)
[2024-10-30] VITALS (17 sets, daily range): BP systolic 83–149; BP diastolic 48–85; PULSE 83–88; O2SAT 96–99; BMI 23.0
[2024-10-30] MEDS: NSS 1000 IV (03:38)
[2024-10-30 05:24] LABS: ALT (SGPT) 80 U/L (0-35); AST (SGOT) 114 U/L (14-36); Albumin 3.1 g/dl (3.5-5.0); Alkaline Phosphatase 49 U/L (38-126); Blood Urea Nitrogen 25 mg/dl (7-17); Calcium 8.7 mg/dl (8.4-10.2); Carbon Dioxide 28 mmol/L (22-30); Chloride 112 mmol/L (98-107); Estimated Creatinine Clearance 53 ml/min; Glucose 94 mg/dl (70-99); Potassium 4.0 mmol/L (3.5-5.1); Sodium 142 mmol/L (135-145); Total Protein 5.7 g/dl (6.3-8.2); eGFR > 60.00
--- NOTE | 2024-10-30 06:29 | PTCARENOTE ---
Patient aaox3, forgetful. NSR on the monitor. Incontinent of bowel/bladder, hygiene done, new linens and gown. Pt states overall pain/tenderness is 'getting better'. Mineral oil to R side of face and lip. Pt tolerating frequent turning and
repositioning. Call santoyo within reach.
[2024-10-30] MEDS: TEGRETOL XR (EXTENDED RELEASE) 200 MG PO (06:34)
[2024-10-30] MEDS: HYDROPHOR 1 APPLIC TOPICAL ×2 (09:47→20:29)
[2024-10-30] MEDS: LEXAPRO 15 MG PO (09:48)
--- NOTE | 2024-10-30 11:54 | W.PN.NEPH.PH ---
Today's Communication / Plan
-
wean off IVF
Assessment/Plan
-
IMP:
Found Down
Rhabdomyolysis
JOHN
Pressure Wounds / Skin Breakdown
Fall at Home
Leukocytosis
Bipolar Disorder
Benign Essential Tremor
Plan:
cr normalized to 0.8
CK at 1415
seem she is eating well
could trial off IVF
follow BMP
will s/o, call with ?s
-
-
Date of Service: October 30, 2024
CC / HPI / ROS
-
Chief Complaint:
JOHN
History of Present Illness:
JOHN/Cr down to 0.8
BP stable but low
CPK decreasing ~1415
Review of Systems:
no CP/SOB
eating well
Labs
-
Labs:
WBC 8.7 10^3/uL (4.8-10.8) 10/28/24 04:11
RBC 3.63 10^6/uL (4.20-5.40) L 10/28/24 04:11
Hgb 11.4 g/dL (12.0-16.0) L 10/28/24 04:11
Hct 34.2 % (37.0-47.0) L 10/28/24 04:11
Plt Count 155 10^3/uL (130-400) D 10/28/24 04:11
Sodium 142 mmol/L (135-145) 10/30/24 04:36
Potassium 4.0 mmol/L (3.5-5.1) 10/30/24 04:36
Chloride 112 mmol/L (98-107) H 10/30/24 04:36
Carbon Dioxide 28 mmol/L (22-30) 10/30/24 04:36
BUN 25 mg/dl (7-17) H 10/30/24 04:36
Creatinine 0.8 mg/dL (0.6-1.0) 10/30/24 04:36
eGFR > 60.00 10/30/24 04:36
Glucose 94 mg/dl (70-99) 10/30/24 04:36
Calcium 8.7 mg/dl (8.4-10.2) 10/30/24 04:36
Phosphorus 4.7 mg/dl (2.5-4.5) H 10/27/24 06:07
Albumin 3.1 g/dl (3.5-5.0) L 10/30/24 04:36
Physical Exam
-
Vital Signs:
Vital Signs
Temp Pulse Resp BP Pulse Ox
98 F 87 19 137/85 96
10/30/24 11:13 10/30/24 10:00 10/30/24 10:00 10/30/24 10:00 10/30/24 10:00
Cardiovascular:: Regular rate and rhythm
Respiratory:: Bilateral: CTA
Lung Excursion:: Normal
Abdomen:: Nontender and Soft
Bowel Sounds:: Normal
Extremity Edema:: None: Bilateral:
Chaudhry Catheter: No
--- NOTE | 2024-10-30 13:10 | W.PN.HOSP.TC ---
Today's Communication/Plan
-
wean off IVF later tonight
good po intake
oob w/PT
SNF on dc
ongoing dispo
Assessment / Plan
Assessment / Plan
Gen-awake, in better spirits
HEENT-NC, AT, anicteric, clear oral mm, facial bruising noted
Neck-supple
CV-reg, no M, +S1/S2
Lungs-clear B/L
Abd-soft, NT, ND
Ext-no edema
Musculoskeletal-no cyanosis, clubbing
Skin-warm and dry
Neuro-grossly non-focal, bilateral arm tremors
Psych-calm, cooperative
JOHN -likely due to volume depletion, poor oral intake, limited access to fluids prior to admission. Continue hydration. Creatinine came down to 0.8 IV fluid transition to normal saline-plan to stop later tonight. Nephrology following.
Acute traumatic rhabdomyolysis -due to fall, stationary position with limited mobility. Continue alkalinize IV fluids, CPK trending down 1415.
TSH is normal.
Bipolar disorder -continue with Tegretol, Lexapro and nortriptyline.
Tardive dyskinesia/nonessential tremor -monitor for now.
Chronic multifactorial dysphagia - been seen by Dr. Pinto of gastroenterology. Last note dated 09/05/2024. Underwent video swallowing study by speech therapy 06/24/2024, showing cervical osteophytes causing impingement of the posterior esophagus
without obstruction. Evidence of likely esophageal motility disorder, small hiatal hernia without reflux. Diet recommendation was regular diet with thin liquids.
EGD completed 09/05/24 showed abnormal esophageal motility, small hiatal hernia, nodular esophageal mucosa, atrophic erythematous and granular mucosa in the stomach, normal duodenum. Path report from biopsies was negative for H. pylori or intestinal
metaplasia.
Colonoscopy completed 09/05/24 showed fair preparation, perianal skin tags, normal ileum, 2 cecal polyps, 4 ascending colon polyps, 2 hepatic flexure polyps, 3 transverse colon polyps, diverticulosis in the descending colon, patent [id number]
colocolonic anastomosis with healthy-appearing mucosa, mild colonic spasm, stool in the entire examined colon, nonbleeding internal hemorrhoids. Path report showed polyps are consistent with hyperplastic polyps and tubular adenoma in the ascending
colon, tubular adenoma Paddock flexure, tubular adenomas at the transverse colon, unremarkable left colon biopsy, unremarkable random right colon biopsy.
Currently on clear liquid diet, advance as tolerated to regular diet.
Urinary incontinence
Mild cognitive impairment
GERD
Endometriosis
Diverticulosis
Colon polyps -adenomatous and serrated.
History of ostomy due to diverticulitis, reversed
Full code
PT/OT SNF. CM aware.
Anticipated Discharge: 24 - 48 hours
Subjective/Interval History
-
Date of Service: October 30, 2024
remains with good appetite
denies pain
Objective Data
-
Labs:
Laboratory Results
10/30/24
04:36
Sodium 142
Potassium 4.0
Chloride 112 H
Carbon Dioxide 28
BUN 25 H
Creatinine 0.8
Glucose 94
Calcium 8.7
Total Bilirubin 0.4
AST 114 H
ALT 80 H
Alkaline Phosphatase 49
Vital Signs:
Vital Signs
Temp Pulse Resp BP Pulse Ox
98 F 87 19 137/85 96
10/30/24 11:13 10/30/24 10:00 10/30/24 10:00 10/30/24 10:00 10/30/24 10:00
I&O
10/29/24 10/30/24 10/31/24
06:59 06:59 06:59
Intake Total 480 / 480 1380 / 1380
Output Total 1200 / 1200 1200 / 1200
Balance 479 / 479 180 / 180 -1200 / -1200
--- NOTE | 2024-10-30 15:22 | CM ---
Following up on Patient.
OSCAR Soto was told by the Medical Attending that she could be ready tomorrow. OSCAR oSto spoke to Noemi Liaison for [facility] who said there is a bed tomorrow and to check in the AM.
OSCAR Soto spoke to daughter Acacia #[phone] who said [facility] is fine. OSCAR Soto informed the Medical Attending and will call to confirm a bed tomorrow & that patient is ready. Patient met 3 midnight rule for SNF transfer.
PLAN: SNF to [facility]
--- NOTE | 2024-10-30 16:30 | PTCARENOTE ---
Patient alert and oriented. Patient forgetful, repetitive with conversations, very pleasant. Patient needs setup for meals. INC of bowel and bladder. Transferred to tele. Discharge tomorrow to rehab. VS stable. BP's a little soft. PRN
midodrine added with parameters.
[2024-10-30] MEDS: LOVENOX 40 MG SC (17:29)
[2024-10-30] MEDS: NSS IV ×2 (17:29→18:43)
[2024-10-30] MEDS: TYLENOL 650 MG PO (20:28)
--- NOTE | 2024-10-30 21:46 | PTCARENOTE ---
Assumed care of Pt from dayshift RN after change of shift report. Pt awake and alert, very energetic/joking. Pt is forgetful a times, repeats herself. sats 99% on RA. HR 77bpm. Pt c/o generalized mild aching, administered ordered Tylenol, see mar.
pt tolerated taking pills whole in Apple sauce. inc of large amount of yellow urine. pt changed and Barrier ointment applied to sacral region. assessment as documented. call light in reach.
[2024-10-30] MEDS: SENOKOT 17.2 MG PO (22:26)
[2024-10-30] MEDS: TEGRETOL XR (EXTENDED RELEASE) 400 MG PO (22:26)
[2024-10-31] VITALS: BP 102/51
[2024-10-31 02:00] VITALS: BP 95/59
[2024-10-31 04:00] VITALS: BP 117/64
[2024-10-31 05:29] VITALS: BMI 23.3
[2024-10-31 06:06] LABS: ALT (SGPT) 65 U/L (0-35); AST (SGOT) 69 U/L (14-36); Albumin 2.9 g/dl (3.5-5.0); Alkaline Phosphatase 44 U/L (38-126); Blood Urea Nitrogen 21 mg/dl (7-17); Calcium 8.8 mg/dl (8.4-10.2); Carbon Dioxide 29 mmol/L (22-30); Chloride 112 mmol/L (98-107); Estimated Creatinine Clearance 53 ml/min; Glucose 90 mg/dl (70-99); Potassium 4.3 mmol/L (3.5-5.1); Sodium 141 mmol/L (135-145); Total Protein 5.4 g/dl (6.3-8.2); eGFR > 60.00
[2024-10-31 08:00] VITALS: BP 141/73
[2024-10-31] MEDS: LEXAPRO 15 MG PO (09:01)
[2024-10-31] MEDS: HYDROPHOR 1 APPLIC TOPICAL (09:01)
[2024-10-31] MEDS: TEGRETOL XR (EXTENDED RELEASE) 200 MG PO (09:02)
[2024-10-31 10:00] VITALS: BP 137/74
[2024-10-31 10:29] LABS: Platelet Count 172 10^3/uL (130-400)
--- NOTE | 2024-10-31 11:05 | W.PN.HOSP.TC ---
Today's Communication/Plan
-
CPK down trended off IV fluids
Continue home meds
Plan for SNF
Assessment / Plan
Assessment / Plan
Gen-awake, in better spirits
HEENT-NC, AT, anicteric, clear oral mm, facial bruising noted
Neck-supple
CV-reg, no M, +S1/S2
Lungs-clear B/L
Abd-soft, NT, ND
Ext-no edema
Musculoskeletal-no cyanosis, clubbing
Skin-warm and dry
Neuro-grossly non-focal, bilateral arm tremors
Psych-calm, cooperative
JOHN -likely due to volume depletion, poor oral intake, limited access to fluids prior to admission. Continue hydration. Creatinine came down to 0.8 IV fluid transition to normal saline-plan to stop later tonight. Nephrology following.
Acute traumatic rhabdomyolysis -due to fall, stationary position with limited mobility. Continue alkalinize IV fluids, CPK trending down 745 last 24 hours off IV fluids..
TSH is normal.
Bipolar disorder -continue with Tegretol, Lexapro and nortriptyline.
Tardive dyskinesia/nonessential tremor -monitor for now.
Chronic multifactorial dysphagia - been seen by Dr. Pinto of gastroenterology. Last note dated 09/05/2024. Underwent video swallowing study by speech therapy 06/24/2024, showing cervical osteophytes causing impingement of the posterior esophagus
without obstruction. Evidence of likely esophageal motility disorder, small hiatal hernia without reflux. Diet recommendation was regular diet with thin liquids.
EGD completed 09/05/24 showed abnormal esophageal motility, small hiatal hernia, nodular esophageal mucosa, atrophic erythematous and granular mucosa in the stomach, normal duodenum. Path report from biopsies was negative for H. pylori or intestinal
metaplasia.
Colonoscopy completed 09/05/24 showed fair preparation, perianal skin tags, normal ileum, 2 cecal polyps, 4 ascending colon polyps, 2 hepatic flexure polyps, 3 transverse colon polyps, diverticulosis in the descending colon, patent [id number]
colocolonic anastomosis with healthy-appearing mucosa, mild colonic spasm, stool in the entire examined colon, nonbleeding internal hemorrhoids. Path report showed polyps are consistent with hyperplastic polyps and tubular adenoma in the ascending
colon, tubular adenoma [place] flexure, tubular adenomas at the transverse colon, unremarkable left colon biopsy, unremarkable random right colon biopsy.
Currently on clear liquid diet, advance as tolerated to regular diet.
Urinary incontinence
Mild cognitive impairment
GERD
Endometriosis
Diverticulosis
Colon polyps -adenomatous and serrated.
History of ostomy due to diverticulitis, reversed
Full code
PT/OT SNF. CM aware.
More than 30 minutes spent in discharge including
Final examination of the patient
Summarizing hospital stay
Instructions for continuing care to all relevant caregivers
Preparation of discharge records, prescriptions, and referral forms
Total time spent (in minutes): 53
Anticipated Discharge: Today
Subjective/Interval History
-
Date of Service: October 31, 2024
No overnight events
Tolerating diet
Denies feeling lightheaded or dizzy
Objective Data
-
Labs:
Laboratory Results
10/31/24 10/31/24
04:44 10:17
Plt Count 172
Sodium 141
Potassium 4.3
Chloride 112 H
Carbon Dioxide 29
BUN 21 H
Creatinine 0.8
Glucose 90
Calcium 8.8
Total Bilirubin 0.4
AST 69 H
ALT 65 H
Alkaline Phosphatase 44
Vital Signs:
Vital Signs
Temp Pulse Resp BP Pulse Ox
97.9 F 91 17 137/74 98
10/31/24 11:00 10/31/24 10:00 10/31/24 07:14 10/31/24 10:00 10/31/24 07:14
I&O
10/30/24 10/31/24 11/01/24
06:59 06:59 06:59
Intake Total 1380 / 1380 1860 / 1860
Output Total 1200 / 1200 2175 / 2175
Balance 180 / 180 -315 / -315
--- NOTE | 2024-10-31 11:07 | W.DCSUMMARY ---
Discharge Summary
Discharge Data
Date of Admission: 10/26/24
Date of Discharge: 10/31/24
-
Pending Results: No
Hospital Course
79-year-old female past medical history of bipolar disorder, urinary incontinence, suspected cognitive impairment, GERD, endometriosis who is presenting from home. Patient was found down at home by family after patient fell. Patient was unable to
get up by herself. Patient laid on the floor and when family found her they called 911 and patient was brought into the hospital. Upon admission patient was found to have a severe rhabdomyolysis and acute kidney injury. Patient was started on
aggressive IV fluid resuscitation. Nephrology evaluated patient. Patient CK slowly downtrended. Patient creatinine slowly improved. Patient with significant improvement in appetite. Patient also had mild transaminitis which was deemed secondary
to acute rhabdomyolysis which improved with reduction in CK. Patient creatinine remained stable off of IV fluid. In regards with the facial wound, wound care was consulted. Patient with good appetite. Patient was eval by physical and
Occupational Therapy. Patient will be discharged to care home facility.
Discharge Plan
-
Patient Disposition: Residential/SNF
Discharge Diagnosis/Procedures: Acute kidney injury
Acute traumatic rhabdomyolysis
Condition: Fair
Diet: Regular
Activity: With assistance and As tolerated
Driving Restrictions: Not until seen by your Dr
Blood Work: CMP and CK in 7 days via primary doctor
Activity Restrictions/Additional Instructions:
Wound Care Instructions
R cheek, lip and chin: clean with soap and water daily, mineral oil (Aquaphor)twice a day
Follow up at wound care center if R cheek wound not improving, call for an appointment.
Referrals:
Marifer Devine PA-C [Family Provider, Family Practice] - in less than 1 week
Prescriptions:
Continued
carbamazepine [Tegretol XR] 200 mg Tablet Extended Release 12 Hr
200 mg PO DAILY AT 0700
carbamazepine [Tegretol XR] 200 mg Tablet Extended Release 12 Hr
400 mg PO HS
Rx Instructions:
take 2, 200mg tablets by mouth every evening
nortriptyline 25 mg Capsule
25 mg PO HS
escitalopram oxalate [Lexapro] 10 mg Tablet
15 mg PO DAILY
Discharge Orders:
Discharge Patient (As Directed); Ordered 10/31/24
Ordered By: Suleiman Bee
Discharge Date and Time
Discharge Date/Time: 10/31/24 15:03
Print Language: SURINAMESE
[2024-10-31 12:00] VITALS: BP 117/63
--- NOTE | 2024-10-31 15:13 | CM ---
Following up on Patient. Medical Attending stated that patient is ready for SNF.
OSCAR Soto confirmed bed is a [facility] via [employer] Faxed.
Report: #[phone]

Daughter aware of 14:30 transport time and IMM verbally consented by daughter Acacia.
PLAN: SNF to [facility].
--- NOTE | 2024-10-31 15:34 | PTCARENOTE ---
Pt for d/c to [facility]. Report called to receiving RN. Belongings collected from room. IV and monitor equipment removed. Pt d/c with [facility].
== END 2024-10-31 15:03 | DRG 565 ==
LOC: IMU 22:37
PROVIDERS: Hospitalist; ADMITTING PHYSICIAN Hospitalist; ATTENDING PHYSICIAN Hospitalist; CONSULT PHYSICIAN Internal Medicine; EMERGENCY PHYSICIAN Emergency Medicine; FAMILY PHYSICIAN Physician Assistant Medical
DX: T79.6XXA Traumatic ischemia of muscle, initial encounter (principal); E87.20 Acidosis, unspecified; N17.9 Acute kidney failure, unspecified; T76.01XA Adult neglect or abandonment, suspected, initial encounter; E86.0 Dehydration; R63.1 Polydipsia; F31.9 Bipolar disorder, unspecified; L89.816 Pressure-induced deep tissue damage of head; N18.30 Chronic kidney disease, stage 3 unspecified; I12.9 Hypertensive chronic kidney disease with stage 1 through stage 4 chronic kidney disease, or unspecified chronic kidney disease; G24.01 Drug induced subacute dyskinesia; R15.9 Full incontinence of feces; R32 Unspecified urinary incontinence; G25.0 Essential tremor; D72.829 Elevated white blood cell count, unspecified; E86.9 Volume depletion, unspecified; G31.84 Mild cognitive impairment of uncertain or unknown etiology; E78.5 Hyperlipidemia, unspecified; K21.9 Gastro-esophageal reflux disease without esophagitis; N80.9 Endometriosis, unspecified; K57.30 Diverticulosis of large intestine without perforation or abscess without bleeding; W18.30XA Fall on same level, unspecified, initial encounter; Y93.9 Activity, unspecified; Y92.000 Kitchen of unspecified non-institutional (private) residence as the place of occurrence of the external cause; Z68.23 Body mass index [BMI] 23.0-23.9, adult; Z90.49 Acquired absence of other specified parts of digestive tract; Z86.0101 Personal history of adenomatous and serrated colon polyps; Z87.19 Personal history of other diseases of the digestive system
CPT/HCPCS: 70450; 71046; 72125; 72170; 76770; 80048; 80053; 80156; 80178; 81003; 81015; 82248; 82550; 82570; 83605; 83735; 84100; 84300; 84443; 85025; 85027; 85049; 87040; 87045; 87046; 87324; 87427; 87449; 93005; 96360; 97110; 97163; 97167; 97530; 97535; 99285

== ENCOUNTER → 2024-11-04 11:30 | Outpatient (REF) | payer MEDICARE, SELFPAY ==
[2024-11-04 12:38] LABS: Hematocrit 31.0 % (37.0-47.0); Hemoglobin 10.0 g/dL (12.0-16.0); Mean Corp Hgb Conc. 32.3 g/dL (33.0-37.0); Mean Corpuscular Volume 97.8 fL (81.0-99.0); Nucleated Red Blood Cells % 0 %; Platelet Count 239 10^3/uL (130-400); Red Cell Dist. Width 12.6 % (11.5-14.5)
[2024-11-04 13:12] LABS: ALT (SGPT) 50 U/L (0-35); AST (SGOT) 32 U/L (14-36); Albumin 3.0 g/dl (3.5-5.0); Alkaline Phosphatase 55 U/L (38-126); Blood Urea Nitrogen 25 mg/dl (7-17); Calcium 8.6 mg/dl (8.4-10.2); Carbon Dioxide 28 mmol/L (22-30); Chloride 108 mmol/L (98-107); Glucose 92 mg/dl (70-99); Potassium 4.5 mmol/L (3.5-5.1); Sodium 139 mmol/L (135-145); Total Protein 5.5 g/dl (6.3-8.2); eGFR > 60.00
== END ==
LOC: OLABP 11:30
PROVIDERS: ATTENDING PHYSICIAN Family Medicine
DX: M62.82 Rhabdomyolysis (principal); E78.00 Pure hypercholesterolemia, unspecified; F09 Unspecified mental disorder due to known physiological condition; F31.9 Bipolar disorder, unspecified; G24.01 Drug induced subacute dyskinesia; K21.9 Gastro-esophageal reflux disease without esophagitis; N17.9 Acute kidney failure, unspecified; N39.42 Incontinence without sensory awareness; R13.10 Dysphagia, unspecified; W19.XXXD Unspecified fall, subsequent encounter
CPT/HCPCS: 36415; 80053; 82550; 85025

== ENCOUNTER → 2024-11-12 11:33 | Outpatient (REF) | payer MEDICARE, SELFPAY ==
[2024-11-12 12:22] LABS: Hematocrit 31.8 % (37.0-47.0); Hemoglobin 10.4 g/dL (12.0-16.0); Mean Corp Hgb Conc. 32.7 g/dL (33.0-37.0); Mean Corpuscular Volume 97.5 fL (81.0-99.0); Nucleated Red Blood Cells % 0 %; Platelet Count 325 10^3/uL (130-400); Red Cell Dist. Width 12.9 % (11.5-14.5)
== END ==
LOC: OLABP 11:33
PROVIDERS: ATTENDING PHYSICIAN Family Medicine
DX: M62.82 Rhabdomyolysis (principal); E78.00 Pure hypercholesterolemia, unspecified; F09 Unspecified mental disorder due to known physiological condition; F31.9 Bipolar disorder, unspecified; G24.01 Drug induced subacute dyskinesia; K21.9 Gastro-esophageal reflux disease without esophagitis; N17.9 Acute kidney failure, unspecified; N39.42 Incontinence without sensory awareness; R13.10 Dysphagia, unspecified; W19.XXXD Unspecified fall, subsequent encounter
CPT/HCPCS: 36415; 85025

== ENCOUNTER → 2024-11-13 11:16 | Outpatient (REF) | payer MEDICARE, SELFPAY ==
[2024-11-13 11:39] LABS: Hematocrit 32.5 % (37.0-47.0); Hemoglobin 10.4 g/dL (12.0-16.0); Mean Corp Hgb Conc. 32.0 g/dL (33.0-37.0); Mean Corpuscular Volume 97.0 fL (81.0-99.0); Nucleated Red Blood Cells % 0 %; Platelet Count 310 10^3/uL (130-400); Red Cell Dist. Width 13.0 % (11.5-14.5)
== END ==
LOC: OLABP 11:16
PROVIDERS: ATTENDING PHYSICIAN Family Medicine
DX: M62.82 Rhabdomyolysis (principal); E78.00 Pure hypercholesterolemia, unspecified; F09 Unspecified mental disorder due to known physiological condition; F31.9 Bipolar disorder, unspecified; G24.01 Drug induced subacute dyskinesia; K21.9 Gastro-esophageal reflux disease without esophagitis; N17.9 Acute kidney failure, unspecified; N39.42 Incontinence without sensory awareness; R13.10 Dysphagia, unspecified; W19.XXXD Unspecified fall, subsequent encounter
CPT/HCPCS: 36415; 85025

== ENCOUNTER → 2024-11-19 11:11 | Outpatient (REF) | payer OTHER, MEDICARE, SELFPAY ==
[2024-11-19 11:52] LABS: Hematocrit 32.3 % (37.0-47.0); Hemoglobin 10.3 g/dL (12.0-16.0); Mean Corp Hgb Conc. 31.9 g/dL (33.0-37.0); Mean Corpuscular Volume 98.5 fL (81.0-99.0); Nucleated Red Blood Cells % 0 %; Platelet Count 299 10^3/uL (130-400); Red Cell Dist. Width 13.1 % (11.5-14.5)
== END ==
LOC: OLABP 11:11
PROVIDERS: ATTENDING PHYSICIAN Family Medicine
DX: K21.9 Gastro-esophageal reflux disease without esophagitis (principal); G24.01 Drug induced subacute dyskinesia; N17.9 Acute kidney failure, unspecified; E78.00 Pure hypercholesterolemia, unspecified; R13.10 Dysphagia, unspecified
CPT/HCPCS: 36415; 85025